=== PATIENT | male | born 1990 | race Caucasian/White ===

== ENCOUNTER 2022-12-09 15:32 | Emergency (ER) | payer OTHER, SELFPAY ==
[2022-12-09 15:50] VITALS: BP 127/75; PULSE 79; RESP 16; TEMP 36.8; O2SAT 99
--- NOTE | 2022-12-09 15:58 | ED.LOWEXIN ---
HPI - Extremity Injury (Lower) General Chief Complaint: Extremity Injury, Lower Stated Complaint: left foot swollen Time Seen by Provider: 12/09/22 15:59 Source: patient Mode of arrival: ambulatory Limitations: no limitations History of Present Illness HPI Narrative: John is a 31-year-old male patient presenting to the clinic today with complaints of left foot swelling. He reports he has had a wound to the left dorsal foot x1 week that has gradually gotten more red and swollen. Now he has redness and swelling to the foot and ankle. Pain with walking. Has noticed some sweating/chills but no known fever. Related Data Home Medications Medication Instructions Recorded Confirmed escitalopram oxalate 10 mg tablet mg 12/09/22 Allergies Allergy/AdvReac Type Severity Reaction Status Date / Time No Known Allergies Allergy Verified 12/09/22 16:02 Review of Systems Review of Systems: Pertinent positives per HPI. Patient denies any fever, headache, visual changes, dizziness, cough, runny nose, sore throat, shortness of breath, chest pain, palpitations, nausea, vomiting, diarrhea, constipation, abdominal pain, or any urinary issues. PMFSH Social History Social History Smoking status: Never smoker Second hand tobacco smoke exposure: No Alcohol intake: current Comments At the time of my signature, I reviewed and agree with the nursing past medical, surgical, social, and family history. There is no relevant family history pertinent to the patient complaint. Exam Narrative: General: Well-developed, well nourished, in no apparent distress Head: Normocephalic, atraumatic. Cardio: Regular rate and rhythm, s1 and s2 normal, no murmur appreciated. Resp: Clear to auscultation bilaterally, no rhonchi, rales, wheezing or rubs. Musculoskeletal: No deformity, mild erythema, redness, and swelling noted to the left foot up to the ankle, tender to palpation over the left foot with a 2 cm open infected wound with yellow discharge, culture was obtained, pain with bearing weight, grossly normal range of motion, muscle strength strong and equal, peripheral pulse strong, no cyanosis, normal gait and station Course Course Emergency Course: Portions of this record may have been created with voice recognition software. Level of Care: Express Care Visit Vital Signs Vital signs: Vital Signs Temperature 36.8 C 12/09/22 15:50 Pulse Rate 79 12/09/22 15:50 Respiratory Rate 16 12/09/22 15:50 Blood Pressure 127/75 12/09/22 15:50 Pulse Oximetry 99 12/09/22 15:50 Oxygen Delivery Room Air 12/09/22 15:50 Temperature 36.8 C 12/09/22 15:50 Pulse Rate 79 12/09/22 15:50 Respiratory Rate 16 12/09/22 15:50 Blood Pressure 127/75 12/09/22 15:50 Pulse Oximetry 99 12/09/22 15:50 Oxygen Delivery Room Air 12/09/22 15:50 Vital signs reviewed MDM - Extremity Injury (Lower) MDM Narrative Medical decision making narrative: At the time of visit patient is resting comfortably on exam table. I suspect patient has an infected wound to the left dorsal foot with cellulitis going up to the proximal ankle. Will place patient on Bactrim and Keflex. Recommend him go to the emergency room if symptoms worsen and he voiced understanding. Tdap was given in the clinic today. Differential Diagnosis Differential diagnosis: Likely other (Infected wound, cellulitis, abscess) Discharge Plan Discharge Clinical Impression: Infected wound, Cellulitis of foot, left Patient Disposition: Home, Self-Care Condition: Stable Instructions: Antibiotic Form, Wound Infection (ED), Cellulitis (ED) Additional Instructions: Take Bactrim DS and Keflex as prescribed Keep wound clean and dry Wound culture obtained and sent to the lab May take Tylenol/Motrin as needed for pain Watch for signs and symptoms of infection of worsening infection-go to th
[2022-12-09] MEDS: TETANUS,DIPHTHERIA,AC PERTUSSIS ADULT (0.5 ML) BOOSTRIX IM (16:17)
--- NOTE | 2022-12-09 16:20 | PC.NURSE ---
barcode med scanner not working. [employer] double checked medication.
== END 2022-12-09 16:33 | disposition home or self-care (01) ==
PROVIDERS: Emergency Provider Nurse Practitioner Family; PCP Emergency Medicine
DX: S91.302A Unspecified open wound, left foot, initial encounter (principal); L03.116 Cellulitis of left lower limb; X58.XXXA Exposure to other specified factors, initial encounter; Z23 Encounter for immunization
CPT/HCPCS: 87070; 87075; 87205; 90471; 90715; 99213; G0463

== ENCOUNTER 2023-08-18 12:21 | Emergency (ER) | payer OTHER, SELFPAY ==
[2023-08-18 12:31] VITALS: BP 144/80; PULSE 128; RESP 18; TEMP 37.4; O2SAT 98
--- NOTE | 2023-08-18 13:30 | ED.GENADULT ---
HPI - General Adult General Chief complaint: Dental/Oral Stated complaint: left tooth pain Source: patient Mode of arrival: ambulatory Limitations: no limitations History of Present Illness HPI narrative: Pt presents for evaluation of left upper dental pain and facial pain. He states he has several teeth which are fractured. He noted worsening pain on the upper left side two days ago. He had abrupt onset of facial swelling in that area two days ago, which has persisted but not progressively worsened. He rates his current pain 10/10 in severity. He had hot flashes upon arriving her today. Denies objective fever, chills, nausea, vomiting, trismus, problems handling secretions. He tried taking Tylenol for his symptoms. He smokes about 1/2 ppd. No underlying medical problems. Related Data Home Medications Medication Instructions Recorded Confirmed lorazepam 0.5 mg tablet 0.5 mg DIRECTED 08/18/23 08/18/23 paroxetine HCl 40 mg tablet 40 mg PO DIRECTED 08/18/23 08/18/23 Allergies Allergy/AdvReac Type Severity Reaction Status Date / Time No Known Allergies Allergy Verified 12/09/22 16:02 Review of Systems Review of Systems: CONSTITUTIONAL: Denies fever, chills, or sweats. EYES: Denies visual changes, redness, or discharge. ENT: reports left upper dental pain with associated facial swelling. Denies rhinorrhea, congestion, sore throat, or otalgia. CARDIOVASCULAR: Denies chest pain, palpitations, or edema. RESPIRATORY: Denies cough or dyspnea. GASTROINTESTINAL: Denies abdominal pain, nausea, vomiting, or diarrhea. GENITOURINARY: Denies dysuria or hematuria. SKIN: Denies rash or itching. MUSCULOSKELETAL: Denies back pain, joint pain, or myalgia. NEUROLOGIC: Denies headache, numbness, dizziness, or weakness. PSYCHIATRIC: Denies anxiety or depression. [facility] Past Medical History Medical History Dental abscess No pertinent past medical history Surgical History Surgical History No pertinent past surgical history Family History Family History Mother Family history non-contributory Social History Social History Smoking packs per day: 0.5 Smoking cigarettes per day: 10.0 Smoking status: Current every day smoker Alcohol intake: current Gender identity (if verbalized by the patient): Male Spiritual care concerns: No Exam Narrative: GENERAL: Well-appearing, well-nourished, and in no acute distress. HEAD: Atraumatic. There is left sided maxillary facial swelling EYES: PERRLA and EOMI. ENT: There are several fractured and absent teeth. Left upper molar is fractured and there is surrounding swelling in the gums with a palpable area of fluctuance. Nares clear, no rhinorrhea or epistaxis. Mucous membranes moist. NECK: Supple. No adenopathy or masses. No carotid bruits or JVD CHEST: Clear to auscultation. No respiratory distress. No wheezes rales or rhonchi HEART: Regular rate and rhythm. No murmur heard. Normal peripheral pulses. ABDOMEN: Soft, nontender, nondistended, normal active bowel sounds. EXTREMITIES: Normal range of motion. No edema. SKIN: Warm, dry, no rash. NEURO: No focal deficits. Alert and oriented x3. PSYCH: Normal mood and affect. Course Course Emergency Course: This is a 32-year-old male who presented for evaluation of left-sided facial swelling and left upper dental pain. He was tachycardic on arrival but HR normalized to a rate of 100 on my initial evaluation. He had a palpable area of fluctuance. After obtaining informed consent, I drained abscess. Pt tolerated well. Will dc with PCN, chlorhexidine, hydrocodone and ibuprofen. Advised on smoking cessation. Follow up with dentist and PCP. Go to the ER for worsening symptoms.
[2023-08-18 13:35] VITALS: PULSE 106; TEMP 37.8
== END 2023-08-18 13:35 | disposition home or self-care (01) ==
PROVIDERS: Emergency Provider Nurse Practitioner; PCP Emergency Medicine
DX: K04.7 Periapical abscess without sinus (principal); F17.210 Nicotine dependence, cigarettes, uncomplicated
CPT/HCPCS: 41800; 99213; G0463

== ENCOUNTER 2023-10-09 12:25 | Emergency (ER) | payer OTHER, SELFPAY ==
--- NOTE | ~2023-10-09 | CT_ITS ---
EXAMINATION: CT orbit BI w con DATE: 10/09/2023 15:24 INDICATION: Right preseptal cellulitis. TECHNIQUE: Computed tomography (CT) of the orbits was performed with 75 mL Omnipaque 350 intravenous contrast. Automated exposure control and iterative reconstruction technique were employed. The dose-l ength product was 212.67 mGy-cm. COMPARISON: Maxillofacial CT 02/19/2013 FINDINGS: There is a right periorbital soft tissue swelling. The orbits are normal. There is mucosal thickening in the paranasal sinuses. There are old fracture deformities of the nasal bones. No acute fracture. Partially visualized is multifocal disease. IMPRESSION: 1. Right periorbital soft tissue swelling. Normal orbits. Reviewed, dictated and finalized at location E.
[2023-10-09 12:27] VITALS: BP 144/89; PULSE 94; RESP 18; TEMP 36.5; O2SAT 100
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
[2023-10-09] MEDS: cefTRIAXone 2 GM/NS 100 ML 2 GM/100 ML BAG IVPB (14:14)
[2023-10-09 14:22] LABS: Basophils Percent Auto 0.5 % (0.2-1.2); Eosinophils Absolute Auto 0.2 K/mm3 (0-0.3); Eosinophils Percent Auto 2.4 % (0-4.4); Hematocrit 45.7 % (42.0-52.0); Hemoglobin 15.8 g/dL (14.0-18.0); Immature Granulocyte Absolute 0.02 K/mm3 (0.00-0.031); Immature Granulocyte Percent A 0.2 % (0-0.5); Lymphocytes Percent Auto 21.6 % (18.3-44.2); Mean Corpuscular HGB Conc 34.6 g/dl (32-36); Mean Corpuscular Hemoglobin 31.5 pg (26-34); Mean Corpuscular Volume 91.2 fl (80-100); Monocytes Absolute Auto 0.7 K/mm3 (0.1-0.6); Monocytes Percent Auto 8.8 % (2.6-8.5); Neutrophils Absolute Auto 5.5 K/mm3 (1.3-6.7); Neutrophils Percent Auto 66.5 % (45.5-73.1); Platelet Count Result 248 k/mm3 (150-375); Red Blood Count 5.01 M/mm3 (4.6-6.20); Red Cell Distribution Width 13.1 % (11.5-14.5); White Blood Count 8.3 K/mm3 (4.5-10.0)
[2023-10-09 14:35] LABS: Alanine Aminotransferase 48 U/L (6-50); Albumin Level 4.6 g/dL (3.5-5.1); Alkaline Phosphatase 78 U/L (38-126); Anion Gap 9 mmol/L (4-12); Aspartate Amino Transferase 30 U/L (17-59); Bilirubin,Total 0.4 mg/dL (0.2-1.3); Blood Urea Nitrogen 11 mg/dL (9-20); CRP < 0.5 mg/dL (<1.0); Calcium 9.1 mg/dL (8.4-10.2); Carbon Dioxide 22 mmol/L (22-30); Chloride 107 mmol/L (98-107); Estimated CRCL calculation 127 ml/min; Estimated Glomerular Filt Rate > 60; Glucose 109 mg/dL (65-110); Potassium 3.6 mmol/L (3.4-5.0); Sodium 138 mmol/L (137-145)
[2023-10-09 15:14] LABS: Erythrocyte Sedimentation Rate 17 mm/hr (0-20)
[2023-10-09] MEDS: cefTRIAXone 1 GM VIAL IM (16:07)
[2023-10-09] MEDS: AZITHROMYCIN 250 MG TABLET 1000 MG PO (16:07)
--- NOTE | 2023-10-09 16:17 | PHAR ---
CALLED ER TO QUESTION 1 GM CEFTRIAXONE IM ORDER AFTER 2 GM IVPB GIVEN 2 HRS BEFORE. NURSE (RADHA) TOLD ME SHE HAS ALREADY GIVEN THE 1 GM IM CEFTRIAXONE DOSE.
[2023-10-09 16:30] VITALS: BP 134/76; PULSE 78; RESP 18; TEMP 36.7; O2SAT 100
== END 2023-10-09 16:48 | disposition home or self-care (01) ==
PROVIDERS: Physician Assistant; Emergency Provider Emergency Medicine
DX: H10.9 Unspecified conjunctivitis (principal); F17.210 Nicotine dependence, cigarettes, uncomplicated
CPT/HCPCS: 36415; 70481; 80053; 85025; 85652; 86140; 96365; 99284; A9270; J0696; Q9967

== ENCOUNTER 2023-10-12 12:47 | Emergency (ER) | payer OTHER, SELFPAY ==
--- NOTE | ~2023-10-12 | CT_ITS ---
EXAMINATION: CT facial bones w con DATE: 10/12/2023 17:13 INDICATION: Right facial swelling. TECHNIQUE: Computed tomography (CT) of the facial bones and maxillofacial region was performed with 1 00 mL Omnipaque 350 intravenous contrast. Automated exposure control and iterative reconstruction radha hnique were employed. The dose-length product was 470.62 mGy-cm. COMPARISON: CT orbits 10/09/2023 FINDINGS: There is mild bilateral submandibular lymphadenopathy. There is mucosal thickening in the p aranasal sinuses. The orbits are normal. There is extensive dental disease. There is a carious lesion of tooth 3 with periapical lucencies and breech of the buccal cortex of the alveolar process with 4 x 3 mm subperiosteal abscess and overlying soft tissue swelling. IMPRESSION: 1. Extensive dental disease including a carious lesion of tooth 3 with periapical lucencies and subpe riosteal abscess. 2. Mild bilateral submandibular lymphadenopathy, likely reactive. Reviewed, dictated and finalized at location A. IMPRESSION: 1. Extensive dental disease including a carious lesion of tooth 3 with periapic al lucencies and subperiosteal abscess. 2. Mild bilateral submandibular lymphadenopathy, likely reactive.
[2023-10-12 12:48] VITALS: BP 157/100; PULSE 87; RESP 16; TEMP 36.8; O2SAT 99
--- NOTE | 2023-10-12 14:48 | ED.GENADULT ---
HPI - General Adult General Chief complaint: Eye Problems <Fe Bernal September, - Last Filed: 10/12/23 19:00> Stated complaint: eye redness <Fe Bernal September, - Last Filed: 10/12/23 19:00> Time Seen by Provider: 10/12/23 14:48 <Fe Bernal September, - Last Filed: 10/12/23 19:00> Focused HPI: John Brown is a 32 y/o male with complaints of eye redness/ pain to the right eye that started last Thursday - he came here this past thursday he followed up with Ophtho today and they told him to come here for IV antibiotics since it is spreading to his left eye too now. + blurry vision / denies fever/chills He has been on antibiotic drops for 1 week without improvement GENERAL: no acute distress. HEAD: Normocephalic, atraumatic. CHEST: Clear to auscultation. ?No respiratory distress. HEART: Regular rate and rhythm.? NEURO: ?Alert and oriented x3. Patient screened in triage and initial orders placed.? ?Additional care and disposition to be based upon?diagnostic testing and treatment. <Fe Bernal September, - Last Filed: 10/12/23 19:00> Related Data Home medications: Home Medications Medication Instructions Recorded Confirmed lorazepam 0.5 mg tablet 0.5 mg DIRECTED 08/18/23 08/18/23 paroxetine HCl 40 mg tablet 40 mg PO DIRECTED 08/18/23 08/18/23 <Fe Bernal September, - Last Filed: 10/12/23 19:00> Allergies/adverse reactions: Allergies Allergy/AdvReac Type Severity Reaction Status Date / Time No Known Allergies Allergy Verified 10/12/23 14:58 <Fe Bernal September, - Last Filed: 10/12/23 19:00> Review of Systems Review of Systems: All systems reviewed & are unremarkable except as noted in HPI and below <Raven Davis MD - Last Filed: 10/12/23 18:54> PMFSH Past Medical History Medical History: Medical History Dental abscess No pertinent past medical history <Fe Bernal May, CURRICULUM DIRECTOR - Last Filed: 10/12/23 19:00> Surgical History Surgical History: Surgical History No pertinent past surgical history <Fe ConchitaJennifer Hernandez CURRICULUM DIRECTOR - Last Filed: 10/12/23 19:00> Family History Family History: Family History Mother Family history non-contributory <Fe Hernandez CURRICULUM DIRECTOR - Last Filed: 10/12/23 19:00> Social History Social History: Social History Smoking packs per day: 0.5 Smoking cigarettes per day: 10.0 Smoking status: Current every day smoker Alcohol intake: current Gender identity (if verbalized by the patient): Male Spiritual care concerns: No <Fe Hernandez, CURRICULUM DIRECTOR - Last Filed: 10/12/23 19:00> Exam Narrative: EXAMINATION OF ORGAN SYSTEMS/BODY AREAS: Constitutional: Vital signs per nursing GENERAL:[No acute distress, non-toxic appearing.] HEAD: Normal with no signs of head trauma. EYES: Red eyes bilaterally, extraocular movements intact that issue ENT: Hearing grossly intact LUNGS: Nonlabored breathing. HEART: [Regular rate and rhythm] ABD: [Soft], [nontender to palpation] EXT: Normal range of motion SKIN: [No rashes or lesions.] NEURO: [Alert and oriented x 3. No gross focal sensory or strength deficits.] PSYCH: Normal affect <Raven Davis MD - Last Filed: 10/12/23 18:54> Course Vital Signs Vital signs: Vital Signs Temperature 98.2 F 10/12/23 12:48 Pulse Rate 87 10/12/23 12:48 Respiratory Rate 16 10/12/23 12:48 Blood Pressure 157/100 H 10/12/23 12:48 Pulse Oximetry 99 10/12/23 12:48 Oxygen Delivery Room Air 10/12/23 12:48 Temperature 98.2 F 10/12/23 12:48 Pulse Rate 87 10/12/23 12:48 Respiratory Rate 16 10/12/23 12:48 Blood Pressure 157/100 H 10/12/23 12:48 Pulse Oximetry 99 10/12/23 12:48 Oxygen Delivery Room Air 10/12/23 12:48 <Fe Hernandez, CURRICULUM DIRECTOR - Last Filed: 0
[2023-10-12 15:10] LABS: Basophils Absolute Auto 0.1 K/mm3 (0.0-0.1); Basophils Percent Auto 0.8 % (0.2-1.2); Eosinophils Absolute Auto 0.3 K/mm3 (0-0.3); Eosinophils Percent Auto 3.6 % (0-4.4); Hematocrit 46.7 % (42.0-52.0); Hemoglobin 15.9 g/dL (14.0-18.0); Immature Granulocyte Absolute 0.01 K/mm3 (0.00-0.031); Immature Granulocyte Percent A 0.1 % (0-0.5); Lymphocytes Absolute Auto 1.94 K/mm3 (0.9-3.2); Lymphocytes Percent Auto 23.5 % (18.3-44.2); Mean Corpuscular Hemoglobin 31.4 pg (26-34); Mean Corpuscular Volume 92.1 fl (80-100); Mean Platelet Volume 9.2 fl (7.4-10.4); Monocytes Absolute Auto 0.9 K/mm3 (0.1-0.6); Monocytes Percent Auto 10.4 % (2.6-8.5); Neutrophils Absolute Auto 5.1 K/mm3 (1.3-6.7); Neutrophils Percent Auto 61.6 % (45.5-73.1); Platelet Count Result 263 k/mm3 (150-375); Red Blood Count 5.07 M/mm3 (4.6-6.20); Red Cell Distribution Width 13.4 % (11.5-14.5); White Blood Count 8.3 K/mm3 (4.5-10.0)
[2023-10-12 15:21] LABS: Alanine Aminotransferase 61 U/L (6-50); Alkaline Phosphatase 76 U/L (38-126); Anion Gap 10 mmol/L (4-12); Aspartate Amino Transferase 39 U/L (17-59); Bilirubin,Total 0.6 mg/dL (0.2-1.3); Blood Urea Nitrogen 10 mg/dL (9-20); Calcium 9.3 mg/dL (8.4-10.2); Carbon Dioxide 23 mmol/L (22-30); Chloride 105 mmol/L (98-107); Estimated CRCL calculation 127 ml/min; Estimated Glomerular Filt Rate > 60; Glucose 91 mg/dL (65-110); Potassium 4.1 mmol/L (3.4-5.0); Sodium 138 mmol/L (137-145)
[2023-10-12] MEDS: AMPICILLIN SULB 3 GM/NS 100 ML 3 GM/100 ML VIAL IVPB (16:38)
== END 2023-10-12 17:31 | disposition home or self-care (01) ==
PROVIDERS: Nurse Practitioner Family; Emergency Provider Emergency Medicine
DX: H10.9 Unspecified conjunctivitis (principal); F17.210 Nicotine dependence, cigarettes, uncomplicated
CPT/HCPCS: 36415; 70487; 80053; 85025; 96365; 99284; J0295; Q9967

== ENCOUNTER 2023-11-04 20:58 | Emergency (ER) | payer OTHER, SELFPAY ==
[2023-11-04 21:13] VITALS: BP 125/82; PULSE 89; RESP 19; TEMP 36.9; O2SAT 100
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
== END 2023-11-04 22:55 | disposition home or self-care (01) ==
PROVIDERS: Emergency Provider Physician Assistant
DX: S01.312A Laceration without foreign body of left ear, initial encounter (principal); F17.210 Nicotine dependence, cigarettes, uncomplicated; Z79.899 Other long term (current) drug therapy; W51.XXXA Accidental striking against or bumped into by another person, initial encounter; W22.09XA Striking against other stationary object, initial encounter
CPT/HCPCS: 12011; 99282